=== PATIENT | female | born 1980 | race Caucasian/White ===

== ENCOUNTER 2018-07-10 14:30 | Day surgery (SDC) | payer OTHER ==
--- NOTE | 2018-07-10 15:15 | EDPHY ---
General Time Seen by Provider: 07/10/18 14:58 Narrative: CLINICAL IMPRESSION: Acute appendicitis ASSESSMENT/PLAN: 38-year-old female presents to the emergency department with 2 days of right lower quadrant pain. Yesterday patient experienced nausea, vomiting and diarrhea which have resolved today. Vital signs stable, afebrile, no acute distress, declining pain medications. She does have right lower quadrant pain with rebound tenderness. Mild leukocytosis of 10, no renal insufficiency, electrolyte imbalance or metabolic disturbance. Pelvic ultrasound confirms a 10 mm dilated appendix, normal-appearing ovaries, no pelvic free fluid. Negative test. Patient has been NPO since noon. Discussed with Dr. Adams who will see the patient in the ED. Invanz ordered as patient is breast feeding an 8-month-old and does not have a breast pump or significant milk supply at home and Flagyl is not recommended with . She was kept NPO. Plan for surgery later on this evening. Bed ordered. DIFFERENTIAL DX: Abdominal pain includes but not limited to urinary tract infection, pyelonephritis, infection, ectopic , salpingitis, TOA, ovarian torsion, ovarian cyst, endometriosis, uterine fibroids, acute appendicitis, acute diverticulitis, small-bowel obstruction, constipation ED PROCEDURES: See lab and/or imaging results below ED COURSE: 4:20 p.m.: Spoke with Dr. Monge, patient has a 10 mm dilated appendix by ultrasound. Leukocytosis of 10. Remainder of lab work normal. Not but is breast feeding. Urine studies normal. I spoke to Dr. Adams. She will take the patient to the operating room. Given that patient is breast feeding will avoid ceftriaxone Flagyl and opt for Invanz. No reported allergies. Patient instructed to remain NPO. CHIEF COMPLAINT: Right lower quadrant abdominal pain HPI: 38-year-old female with no reported medical history presents to the emergency department with 2 days of right lower quadrant abdominal pain. Patient reports yesterday she had no appetite, was nauseous, dry heaving and had diarrhea. She had mild right lower quadrant and generalized abdominal pain. This morning she noted that her generalized pain had seem to localize to the right lower quadrant where it has been persistent throughout the day. It seems somewhat better driving to the ED. She has no associated UTI symptoms or flank pain. No reported fever or chills. She did eat today, toast and a banana. She has never had pain like this before. No history of abnormal vaginal discharge or gynecologic history. No abnormal discharge. She is and monogamous with her . She has an IUD in place and does not get menstrual cycles. She has not taken a test. She did not take anything for pain prior to arrival. PAST MEDICAL HISTORY: None reported See nurse/triage notes for additional history if applicable Pertinent Past Surgical History: None reported Family History: None reported Social History: , monogamous with her who is at bedside with her , breast feeding an 8-month-old daughter REVIEW OF SYSTEMS: All other systems negative Constitutional: No fever, no chills, positive for appetite change. Cardiovascular: No chest pain, no palpitations. Respiratory: No cough, no shortness of breath. Gastrointestinal: Positive for abdominal pain, positive for nausea, vomiting, diarrhea. Genitourinary: No hematuria, dysuria, flank pain, pelvic pain Musculoskeletal: No back pain, joint swelling, joint pain, myalgias. Skin: No rashes, color change. Neurological: No headache, dizziness, weakness. PHYSICAL EXAM: General Appearance: Alert, oriented, appropriate, cooperative, NAD, well hydrated, non-toxic appearing, VSS, no hypoxia, declining IV analgesics. Respiratory: There are no retractions, lungs are clear to auscultation. Cardiac: Regular rate and rhythm, no murmurs or gallops. Gastrointestinal: Abdomen is soft, tender to right lower quadrant with mild rebound pain, bowel sounds normal, no masses/hernia, no rigidity, guarding or focal peritoneal findings. Neurological: [ Alert and oriented x 3, CN 2-12 grossly intact Skin: Warm, dry, no rashes, no nodules on palpation. Psychiatric: Patient is oriented X 3, there is no agitation. MEDICAL DECISION MAKING: Patient was seen independently. Secondary supervising physician at time of evaluation was Dr. Carver. Diagnosis: Right lower quadrant abdominal pain. New, requires workup Summary: See Assessment and Plan for summary of ED visit Clinical lab tests: ordered / reviewed. Independent visualization of images, tracing, or specimens: Yes. Discussed patient with another provider: Radiology, Dr. Adams Patient Progress: Stable . - Diagnostics Imaging Results: Imaging Impressions Pelvic/Renal Ultrasound 07/10/18 15:14 Impression: 1. Appendicitis (10 mm in diameter). No free fluid. 2. Normal ovaries. No ovarian cyst or torsion. 3. Well-positioned intrauterine device. Findings discussed with Emergency Department physician advertising sales assistant, Duncan Cramer PA-C on July 10, 2018 at 1614 hours. - History Smoking Status: Never smoked - Objective Vital Signs: Initial Vital Signs Temperature (C) 36.4 C 07/10/18 14:37 Heart Rate 83 07/10/18 14:37 Respiratory Rate 18 07/10/18 14:37 Blood Pressure 110/75 07/10/18 14:37 O2 Sat (%) 96 07/10/18 14:37 O2 Delivery Mode Room Air Allergies/Adverse Reactions: No Known Allergies Allergy (Unverified 07/10/18 14:36) Laboratory Results: Laboratory Results 07/10/18 14:55 07/10/18 14:55 07/10/18 07/10/18 07/10/18 15:15 15:15 14:55 WBC RBC Hgb Hct MCV MCH MCHC RDW Plt Count MPV Neut % (Auto) Lymph % (Auto) Sharp % (Auto) Eos % (Auto) Baso % (Auto) Nucleat RBC Rel Count Absolute Neuts (auto) Absolute Lymphs (auto) Absolute Monos (auto) Absolute Eos (auto) Absolute Basos (auto) Absolute Nucleated RBC Immature Gran % Immature Gran # Sodium 138 mEq/L mEq/L (135-145) Potassium 4.1 mEq/L mEq/L (3.5-5.2) Chloride 106 mEq/L mEq/L (97-110) Carbon Dioxide 25 mEq/l mEq/l (22-31) Anion Gap 7 mEq/L mEq/L (6-14) BUN 16 mg/dL mg/dL (7-23) Creatinine 0.7 mg/dL mg/dL (0.6-1.0) Estimated GFR > 60 Glucose 87 mg/dL mg/dL (70-100) Calcium 9.6 mg/dL mg/dL (8.5-10.4) Urine Color YELLOW Urine Appearance HAZY Urine pH 5.0 (5.0-7.5) Ur Specific [place] 1.024 (1.002-1.030) Urine Protein NEGATIVE (NEGATIVE) Urine Ketones TRACE H (NEGATIVE) Urine Blood NEGATIVE (NEGATIVE) Urine Nitrate NEGATIVE (NEGATIVE) Urine Bilirubin NEGATIVE (NEGATIVE) Urine Urobilinogen 4.0 EU H EU (0.2-1.0) Ur Leukocyte Esterase NEGATIVE (NEGATIVE) Urine RBC 1-3 /hpf /hpf (0-3) Urine WBC 1-3 /hpf /hpf (0-3) Ur Epithelial Cells TRACE /lpf /lpf (NONE-1+) Urine Mucus 2+ /lpf H /lpf (NONE-1+) Urine Glucose NEGATIVE (NEGATIVE) Urine Test NEGATIVE 07/10/18 14:55 WBC 10.74 10^3/uL H 10^3/uL (3.80-9.50) RBC 4.92 10^6/uL 10^6/uL (4.18-5.33) Hgb 14.4 g/dL g/dL (12.6-16.3) Hct 43.2 % % (38.0-47.0) MCV 87.8 fL fL (81.5-99.8) MCH 29.3 pg pg (27.9-34.1) MCHC 33.3 g/dL g/dL (32.4-36.7) RDW 12.9 % % (11.5-15.2) Plt Count 267 10^3/uL 10^3/uL (150-400) MPV 10.5 fL fL (8.7-11.7) Neut % (Auto) 75.3 % H % (39.3-74.2) Lymph % (Auto) 17.7 % % (15.0-45.0) Sharp % (Auto) 5.6 % % (4.5-13.0) Eos % (Auto) 0.6 % % (0.6-7.6) Baso % (Auto) 0.6 % % (0.3-1.7) Nucleat RBC Rel Count 0.0 % % (0.0-0.2) Absolute Neuts (auto) 8.10 10^3/uL H 10^3/uL (1.70-6.50) Absolute Lymphs (auto) 1.90 10^3/uL 10^3/uL (1.00-3.00) Absolute Monos (auto) 0.60 10^3/uL 10^3/uL (0.30-0.80) Absolute Eos (auto) 0.06 10^3/uL 10^3/uL (0.03-0.40) Absolute Basos (auto) 0.06 10^3/uL 10^3/uL (0.02-0.10) Absolute Nucleated RBC 0.00 10^3/uL 10^3/uL (0-0.01) Immature Gran % 0.2 % % (0.0-1.1) Immature Gran # 0.02 10^3/uL 10^3/uL (0.00-0.10) Sodium Potassium Chloride Carbon Dioxide Anion Gap BUN Creatinine Estimated GFR Glucose Calcium Urine Color Urine Appearance Urine pH Ur Specific [place] Urine Protein Urine Ketones Urine Blood Urine Nitrate Urine Bilirubin Urine Urobilinogen Ur Leukocyte Esterase Urine RBC Urine WBC Ur Epithelial Cells Urine Mucus Urine Glucose Urine Test Departure - Departure Condition: Fair
[2018-07-10 15:23] LABS: PLATELET COUNT 267 10^3/uL (150-400)
[2018-07-10] MEDS ORDERED: ERTAPENEM 1 GM in NS 100 ML IV ONE (16:22)
[2018-07-10] MEDS ORDERED: MIDAZOLAM 2 MG/2 ML VIAL IVP ONE (16:44)
--- NOTE | 2018-07-10 16:44 | PDANEPAE ---
ANE History of Present Illness acute appendicitis ANE Past Medical History - Cardiovascular History Hx Hypertension: No Hx Arrhythmias: No Hx Chest Pain: No Hx Coronary Artery / Peripheral Vascular Disease: No Hx CHF / Valvular Disease: No Hx Palpitations: No - Pulmonary History Hx COPD: No Hx Asthma/Reactive Airway Disease: No Hx Recent Upper Respiratory Infection: No Hx Oxygen in Use at Home: No Hx Sleep Apnea: No - Endocrine History Hx Diabetes: No Hypothyroid: No Hyperthyroid: No Obesity: no - Renal History Hx Renal Disorders: No - Liver History Hx Hepatic Disorders: No - Neurological & Psychiatric Hx Hx Neurological and Psychiatric Disorders: No ANE Review of Systems Review of systems is: negative Review of Systems: - Exercise capacity Exercise capacity: >=4 METS ANE Patient History - Allergies Allergies/Adverse Reactions: No Known Allergies Allergy (Unverified 07/10/18 14:36) - Home Medications Home medications: home medication list seen and reviewed - NPO status NPO Since - Solids (Date): 07/10/18 NPO Since - Solids (Time): 12:00 (banana) - Smoking Hx Smoking Status: Never smoked - Family Anes Hx Family Anes Hx: none ANE Labs/Vital Signs - Labs Result Diagrams: 07/10/18 14:55 07/10/18 14:55 - Vital Signs Vital Signs: reviewed preoperatively; see RN documention for details Blood Pressure: 113/81 Heart Rate: 74 Respiratory Rate: 20 O2 Sat (%): 97 Height: 172.72 cm Weight: 72.575 kg ANE Physical Exam - Airway Neck exam: FROM Mallampati Score: Class 1 Mouth exam: normal dental/mouth exam - Pulmonary Pulmonary: no respiratory distress - Cardiovascular Cardiovascular: regular rate and rhythym - ASA Status ASA Status: I, E ANE Anesthesia Plan Anesthesia Plan: general endotracheal anesthesia (RSI for acute appendicitis)
[2018-07-10] MEDS ORDERED: BUPIVACAINE 0.5% 30 ML SDV ONE (16:46)
[2018-07-10] MEDS ORDERED: PROPOFOL 200 MG/20 ML VIAL ONE (16:57)
[2018-07-10] MEDS ORDERED: fentaNYL 100 MCG/2 ML INJ ONE ×2 (16:57→18:46)
[2018-07-10] MEDS ORDERED: ONDANSETRON 4 MG/2 ML VIAL ONE (17:00)
[2018-07-10] MEDS ORDERED: DEXAMETHASONE 4 MG/ML VIAL ONE ×2 (17:00)
[2018-07-10] MEDS ORDERED: ROCURONIUM 50 MG/5 ML VIAL ONE (17:00)
--- NOTE | 2018-07-10 17:33 | POSTOPPROG ---
Post Op Note Date of Operation: 07/10/18 Surgeon: Jane Adams Anesthesiologist: lopez Anesthesia: GET(General Endotracheal) Pre-op Diagnosis: acute appendicitis Post-op Diagnosis: same Indication: 38 yo with acute appy Procedure: lap appy Findings: inflamed appendix Inf/Abcess present in the surg proc area at time of surgery?: No EBL: Minimal Specimen(s): appendix
--- NOTE | 2018-07-10 17:40 | GHP ---
[f rep st] HISTORY AND PHYSICAL DATE OF ADMISSION: 07/10/2018 CHIEF COMPLAINT: Acute appendicitis. HISTORY OF PRESENT ILLNESS: The patient is a 38-year-old woman who has had abdominal pain that has l ocalized to the right lower quadrant for 2 days. Yesterday, she had nausea, vomiting, and diarrhea. She almost did not present today. She had an ultrasound obtained which showed a 10 mm dilated appen chester. Her white count was 10. PAST MEDICAL HISTORY: None. PAST SURGICAL HISTORY: D and C for miscarriage. SOCIAL HISTORY: She is with an almost 5-year-old, and an 8-month-old daughter. She is breas tfeeding. REVIEW OF SYSTEMS: No fevers, chills. History of nausea, vomiting. PHYSICAL EXAMINATION: VITAL SIGNS: 36.4, 74,113/81, 20, 97% room air. GENERAL: Pleasant, well nou rished, well groomed woman sitting up on gurney. HEENT: Normocephalic. No gross hearing deficits. Mucous membranes moist. Pupils equal and round. No scleral icterus. LUNGS: Clear to auscultation bilaterally. No increased work of breathing. CARDIAC: Regular rate. No peripheral edema. ABDOME N: Bowel sounds present. Soft. Positive Rovsing sign. Tender right lower quadrant. No peritoneal signs. She is soft. MUSCULOSKELETAL: Normal nails. PSYCH: Mood and affect normal. NEURO: Gross ly intact. RESULTS REVIEWED: I personally reviewed the results of her CT scan and her laboratory work as kelley romero in the [facility]. IMPRESSION AND PLAN: A 38-year-old woman who is , with acute appendicitis. I will take her to the operating room for a laparoscopic appendectomy. Risks and benefits, including but not li mited to, infection, bleeding, damage to other structures, were discussed. She is receiving Invanz i n the ER. If she is not perforated, she should be able to discharge home unless her pain is not cont rolled, nausea, or other issues. /[id number]/MODL
[2018-07-10] MEDS ORDERED: GLYCOPYRROLATE 0.2 MG/1 ML VIAL ONE (17:57)
[2018-07-10] MEDS ORDERED: NEOSTIGMINE METHYLSULFATE 5 MG/5 ML SYR ONE (17:57)
[2018-07-10] MEDS ORDERED: KETOROLAC 30 MG/1 ML SDV ONE (17:59)
[2018-07-10] MEDS ORDERED: oxyCODONE IR 5 MG TAB PO PRN (18:17)
[2018-07-10] MEDS ORDERED: PHENYLEPHRINE HCL 100 MCG/ML SYR IVP PRN (18:17)
[2018-07-10] MEDS ORDERED: NALOXONE HCL 0.4 MG/ML INJ IVP PRN (18:17)
[2018-07-10] MEDS ORDERED: ACETAMINOPHEN 500 MG TAB PO PRN (18:17)
[2018-07-10] MEDS ORDERED: fentaNYL 100 MCG/2 ML INJ IVP PRN (18:17)
[2018-07-10] MEDS ORDERED: LR 500 ML IV PRN (18:17)
[2018-07-10] MEDS ORDERED: METOCLOPRAMIDE 10 MG/2 ML VIAL IVP PRN (18:17)
[2018-07-10] MEDS ORDERED: HYDROmorphONE/DILAUDID 2 MG/ML INJ IVP PRN (18:17)
[2018-07-10] MEDS ORDERED: ALBUTEROL 3 ML DEYVIAL IH PRN (18:17)
[2018-07-10] MEDS ORDERED: LABETALOL HCL 5 MG/ML 20 ML MDV IVP PRN (18:17)
[2018-07-10] MEDS ORDERED: PROMETHAZINE HCL 25 MG/ML INJ IVP PRN (18:17)
--- NOTE | 2018-07-10 18:17 | POSTANESTH ---
Post Anesthetic Evaluation Cardiovascular Status: Normal, Stable Respiratory Status: Normal, Stable Level of Consciousness/Mental Status: Can Participate in Eval Pain Control: Adequate, Prn Tx Ordered Nausea/Vomiting Control: Adequate, Prn Tx Ordered Complications Possibly Related to Anesthesia: None Noted
[2018-07-10 19:57] VITALS: BP 106/71
--- NOTE | 2018-07-11 04:57 | GOP ---
[f rep st] OPERATIVE REPORT DATE OF OPERATION: 07/10/2018 SURGEON: Jane Adams MD ANESTHESIA: General. ANESTHESIOLOGIST: Brent Guerrero M.D. PREOPERATIVE DIAGNOSIS: Acute appendicitis. POSTOPERATIVE DIAGNOSIS: Acute appendicitis. PROCEDURE PERFORMED: Laparoscopic appendectomy. FINDINGS: Inflamed appendix. SPECIMENS: Appendix. ESTIMATED BLOOD LOSS: 5 cc. INDICATIONS: The patient is a 38-year-old woman who has had 2 days of abdominal pain. Ultrasound co nfirmed appendicitis. DESCRIPTION OF PROCEDURE: The patient was brought into the operating room, placed supine on the tabl e, and general anesthesia was administered. Her abdomen was prepped and draped in the usual sterile fashion. I infiltrated all sites with 0.5% Marcaine prior to making incisions. I elevated her umbil icus, made a small incision, inserted the Veress needle, passed the hanging drop test, and her abdome n insufflated easily to a pressure of 15 mmHg. I placed a 5 mm trocar with a camera at this site. T here were no injuries from Veress needle placement. I placed a 5 mm suprapubic trocar and a 10 mm tr ocar in the left lower quadrant. I grasped the appendix and I divided the mesoappendix with the Harm onic scalpel. I transected the base with an Endo-LU 45 white load. It was placed in an Endo Catch bag and retrieved via the 10 mm trocar. Hemostasis was achieved at the staple line. Abdomen explore d. No injuries found and no evidence of perforation. The ports were removed under direct vision, ab domen allowed to desufflate, fascia closed at the 10 mm trocar site with 0 Vicryl, skin closed with 4 -0 Monocryl, Dermabond applied. She was awakened in the operating room, extubated, transferred to [facility] PACU in stable condition. /[id number]/MODL
== END 2018-07-10 19:56 | disposition home or self-care (01) ==
LOC: FSGY 16:22 → UNDOADMOB 16:22 → UNDODISOB 19:56 → FSGY 19:56
PROVIDERS: ATTEND Surgery
PROC: 0DTJ4ZZ Resection of Appendix, Percutaneous Endoscopic Approach (ICD-10-PCS; principal; 2018-07-10 17:15)
DX: K35.80 Unspecified acute appendicitis (principal); Z97.5 Presence of (intrauterine) contraceptive device
CPT/HCPCS: J1100; J1335; J1885; J2250; J2405; J2704; J2710; J3010